=== PATIENT | female | born 1985 | race Hispanic/Latino ===

== ENCOUNTER 2016-08-11 06:29 | Inpatient (IN) ==
[2016-08-11] MEDS ORDERED: KEFZOL 1 GM/D5W 1 GM/50 ML IVPB IV PRN (06:59)
[2016-08-11] MEDS ORDERED: REGLAN PO ONE (06:59)
[2016-08-11] MEDS ORDERED: PEPCID PO ONE (06:59)
[2016-08-11] MEDS ORDERED: LR 500 ML IV ONE (06:59)
[2016-08-11] MEDS ORDERED: SODIUM CHLORIDE 0.9% INJ ONE ×2 (07:02→07:45)
[2016-08-11] MEDS ORDERED: PEPCID IV ONE ×2 (07:02→07:45)
[2016-08-11] MEDS ORDERED: BICITRA PO ONE ×2 (07:03→07:45)
[2016-08-11] MEDS ORDERED: DURAMORPH ONE (07:05)
[2016-08-11] MEDS ORDERED: EPHEDRINE ONE (07:05)
[2016-08-11] MEDS ORDERED: PITOCIN ONE (07:06)
[2016-08-11] MEDS ORDERED: TORADOL ONE (07:06)
[2016-08-11] MEDS ORDERED: ZOFRAN ONE (07:06)
[2016-08-11] MEDS ORDERED: PITOCIN 20 UNITS/LR 20 UNITS/1,000 ML IV.SOLN ONE (07:07)
[2016-08-11] MEDS ORDERED: CLINDAMYCIN 900 MG/NS 900 MG/50 ML IVPB IV ONE (07:10)
--- NOTE | 2016-08-11 07:17 | HISTORY AND PHYSICAL ---
HISTORY OF PRESENT ILLNESS: The patient is a 30-year-old female 3, para 2-0-0-2 who is admitted at this time for repeat and tubal ligation. She has had routine care, has an EDC of 08/17/2016. She has had 2 previous C-sections, is admitted at this time for a repeat and tubal ligation. She understands the tubal is permanent with a 1 out of 200 failure rate. PAST MEDICAL HISTORY: None. PAST SURGICAL HISTORY: x2. MEDICINES: vitamins. ALLERGIES: Penicillin. PHYSICAL EXAMINATION: GENERAL: Well-developed female. HEENT: Benign. NECK: Supple. LUNGS: Clear. CARDIOVASCULAR: Regular rate and rhythm. ABDOMEN: Soft, nontender. EXTREMITIES: Without clubbing, cyanosis, or edema. ASSESSMENT AND PLAN: This is a 30-year-old with term intrauterine , admitted at this time for repeat section, tubal ligation. The risks of surgery were explained. cc: Carlo Byers MD
[2016-08-11] MEDS: LR 1,000 ML IV SCH ×2 (08:05→21:08)
[2016-08-11 08:27] LABS: MANUAL DIFF NEEDED? NO
[2016-08-11 08:29] LABS: BASO% 0.2 % (0.0-0.8); EOS% 0.7 % (0.0-10.0); HEMATOCRIT 34.2 % (37.0-47.0); HEMOGLOBIN 11.5 g/dL (12.0-16.0); IMM GRAN# 0.17 X1000 (0.0-0.04); IMM GRAN% 1.2 % (0.0-0.5); LYMPH# 3.08 X1000 (1.2-3.4); LYMPH% 21.5 % (20.5-51.1); MCH 26.3 PG (27-31); MCHC 33.6 g/dL (33-37); MCV 78.1 FL (81-99); MONO# 1.02 X1000 (0.11-0.59); MONO% 7.1 % (1.7-9.3); MPV 9.3 FL (7.4-10.4); NEUT% 69.3 % (42.2-75.2); PLT 381 X1000 (130-400); RBC 4.38 XMIL (4.2-5.4)
[2016-08-11] MEDS ORDERED: AMBIEN PO PRN (08:31)
[2016-08-11] MEDS ORDERED: M-M-R II VACCINE SUBQ ONE (08:31)
[2016-08-11] MEDS ORDERED: BOOSTRIX VACCINE IM ONE (08:31)
[2016-08-11] MEDS ORDERED: MYLICON PO PRN (08:31)
[2016-08-11] MEDS ORDERED: DEMEROL IM PRN (08:31)
[2016-08-11] MEDS ORDERED: PITOCIN 20 UNITS/LR 20 UNITS/1,000 ML IV.SOLN IV ONE (08:31)
[2016-08-11] MEDS ORDERED: DEMEROL PO PRN ×2 (08:31)
[2016-08-11] MEDS ORDERED: HYDROXYZINE IM PRN (08:31)
[2016-08-11] MEDS ORDERED: PERCOCET-5 PO PRN (08:31)
[2016-08-11] MEDS ORDERED: HYDROXYZINE PO PRN (08:31)
[2016-08-11] MEDS ORDERED: PITOCIN IM PRN (08:31)
[2016-08-11] MEDS ORDERED: CYTOTEC PO PRN (08:31)
[2016-08-11] MEDS ORDERED: PHENERGAN IM PRN (08:31)
[2016-08-11 08:44] LABS: URINE SOURCE VOIDED
[2016-08-11 08:54] LABS: BILIRUBIN URINE NEGATIVE (NEGATIVE); BLOOD URINE NEGATIVE (NEGATIVE); CLARITY CLEAR (CLEAR); COLOR YELLOW; GLUCOSE URINE NEGATIVE (NEGATIVE); LEUKOCYTES URINE NEGATIVE (NEGATIVE); NITRITE URINE NEGATIVE (NEGATIVE); PH URINE 6.5; PROTEIN URINE NEGATIVE (NEGATIVE); SP GRAVITY URINE 1.015; UROBILINOGEN URINE NORMAL
[2016-08-11] MEDS ORDERED: BENADRYL IV PRN (10:38)
[2016-08-11] MEDS ORDERED: NARCAN INJ PRN (10:38)
[2016-08-11] MEDS ORDERED: ZOFRAN IV PRN ×2 (10:38)
[2016-08-11] MEDS ORDERED: ZOFRAN ODT PO PRN (10:38)
[2016-08-11] MEDS ORDERED: MORPHINE IV PRN (10:39)
--- NOTE | 2016-08-11 11:15 | OPERATIVE NOTE ---
PROCEDURE DATE : 08/11/2016 PREOPERATIVE DIAGNOSIS: Term intrauterine , previous section, desires repeat, desires tubal ligation. POSTOPERATIVE DIAGNOSES: 1. Term intrauterine , previous section, desires repeat, desires tubal ligation. 2. Severe pelvic adhesive disease. PROCEDURES PERFORMED: 1. Repeat low transverse section. 2. Bilateral tubal ligation. FINDINGS: The patient had a male born, Apgars of 9 and 10, weighed 8 pounds 4 ounces. The patient was noted to have diffuse adhesions of the uterus all the way up to the anterior abdominal wall. The uterus was all adhered to the lower segment and lower abdominal rectus muscles. DESCRIPTION OF PROCEDURE: The patient was taken to the operating room and underwent spinal anesthesia. She was given Cleocin IV and prepped and draped in sterile fashion. I made a Pfannenstiel skin incision and sharply dissected down to the fascia. The fascia was dissected off the rectus muscle. We tried to dissected in through the abdominal muscles, but they were densely adhered. We made a high incision, and finally we were able to get in anteriorly and dissect down using Nieto scissors to dissect the uterus off the rectus muscle until we could identify the lower segment. We made a high incision and low transverse, and clear fluid was noted upon entering the amniotic sac. The infant was delivered using fundal pressure. Cord blood was obtained. Placenta was removed. Uterus was externalized and cleaned with a clean lap. We first closed the major incision with a #1 chromic suture in interlocking fashion. We then used several [id number] and running sutures of #1 chromic to reapproximated the uterus and the serosa in order to stop bleeding. Each tube was then picked up and double ligated with 0 plain suture, cut and sent to pathology for identification. The uterus was put back in its anatomic position. Gelfoam was placed on the lower segment. The rectus muscles were closed with 0 chromic suture. Hemostasis was maintained with Bovie. The fascia was closed with #1 Vicryl, 3-0 Vicryl was used subcuticularly, and the skin was then closed with 4-0 Biosyn. Estimated blood loss is 500 mL. Mother and doing well. cc: Carlo Byers MD
[2016-08-11] MEDS: MYLICON PO SCH ×2 (13:14→20:35)
[2016-08-11] MEDS: PITOCIN 10 UNITS/LR 10 UNIT/1,000 ML IV.SOLN IV SCH (19:12)
[2016-08-11] MEDS: PERICOLACE PO SCH (20:34)
[2016-08-12] MEDS: LR 1,000 ML IV SCH (00:35)
[2016-08-12] MEDS: PITOCIN 10 UNITS/LR 10 UNIT/1,000 ML IV.SOLN IV SCH (03:12)
[2016-08-12] MEDS: PERCOCET-10 PO PRN ×3 (05:31→19:13)
[2016-08-12] MEDS: MOTRIN PO PRN ×2 (05:32→19:13)
[2016-08-12 06:12] LABS: HEMATOCRIT 27.7 % (37.0-47.0); HEMOGLOBIN 8.9 g/dL (12.0-16.0); MCH 25.4 PG (27-31); MCHC 32.1 g/dL (33-37); MCV 79.1 FL (81-99); MPV 9.3 FL (7.4-10.4); RBC 3.5 XMIL (4.2-5.4)
[2016-08-12] MEDS: MYLICON PO SCH ×5 (07:24→20:24)
[2016-08-12] MEDS ORDERED: LR 1,000 ML IV SCH (08:31)
--- NOTE | 2016-08-12 14:14 | PROGRESS NOTE ---
DATE: 08/12/2016 SUBJECTIVE: She is postop day 1 from a repeat delivery and tubal ligation. She voices no complaints. She has not yet ambulated or voided but states she is feeling well. OBJECTIVE: Vital signs are stable. She is afebrile. Lungs clear. Heart: Regular sinus rhythm. Abdomen is distended but soft. Incision is dry and intact. No cyanosis, clubbing, edema in her extremities. Her hemoglobin is 8.9. ASSESSMENT: Postop day 1. Routine postoperative and care. cc: MD Carlo Worthington MD
[2016-08-12] MEDS: PERICOLACE PO SCH (20:24)
[2016-08-13] MEDS: PERCOCET-10 PO PRN ×4 (00:55→20:05)
[2016-08-13] MEDS: MOTRIN PO PRN ×2 (08:59→20:04)
[2016-08-13] MEDS: MYLICON PO SCH ×4 (08:59→20:07)
--- NOTE | 2016-08-13 12:16 | Diag Imaging Result Doc PS360 ---
EXAM: KUB ABDOMEN HISTORY: ileus TECHNIQUE: Two views COMMENT: There is a large amount of stool and gas in the ascending colon. There is gas throughout the remainder of the colon with a relative paucity in the distal sigmoid and rectum. There are no previous studies. There are phleboliths in the pelvis. The stomach does not appear to be distended. There is no evidence organomegaly. IMPRESSION: Gaseous dilatation of the colon with constipation, with the exception of the distal sigmoid and rectum. Possibility of a distal colonic obstruction cannot be excluded. Electronically signed by Pelon Ospina 08/13/2016 12:14 PM
[2016-08-13 13:03] LABS: AGAP 12; ALBUMIN 3.1 g/dL (3.5-5.0); ALKALINE PHOSPHATASE 130 U/L (32-104); BUN 5 mg/dL (8-22); CALCIUM 8.5 mg/dL (8.8-10.2); CHLORIDE 102 mmol/L (98-107); COSMO 271; GOT 31 U/L (10-30); GPT 16 U/L (10-36); MAGNESIUM 1.9 mg/dL (1.5-2.7); POTASSIUM 4.2 mmol/L (3.5-5.1); SODIUM 137 mmol/L (136-145); TCO2 23 mmol/L (25-35); TOTAL PROTEIN 6.7 g/dL (6.3-8.3)
[2016-08-13] MEDS ORDERED: FLEET MINERAL OIL ENEMA PR ONE ×2 (14:01→15:30)
[2016-08-13] MEDS: PERICOLACE PO SCH (20:04)
[2016-08-13] MEDS: DULCOLAX PR PRN (20:04)
[2016-08-14] MEDS: DULCOLAX PR PRN (04:02)
[2016-08-14] MEDS ORDERED: MIRALAX PO ONE (06:47)
[2016-08-14 08:43] VITALS: BP 113/72
--- NOTE | 2016-08-14 08:48 | DISCHARGE SUMMARY ---
ADMISSION DATE: 08/11/2016 DISCHARGE DATE: 08/14/2016 ADMITTING DIAGNOSES: 1. Term . 2. Previous section requesting repeat section. 3. Undesired fertility. PRINCIPAL DIAGNOSES: 1. Term . 2. Previous section requesting repeat section. 3. Undesired fertility. PRINCIPAL PROCEDURE: Repeat and tubal sterilization. SUMMARY: Ms. Butt is a 30-year-old, 3, para 2-0-0-2, who is at term gestation. She previously had 2 sections and was admitted to the hospital and underwent a repeat C- section and, per her request, tubal sterilization by Dr. Byers on 08/11/2016. She delivered a male infant weighing 8 pounds 4 ounces with Apgars of 9 at one minute and 10 at five minutes. Extensive adhesions were noted. There were no intraoperative complications. Postoperatively, the patient did well. She remained afebrile. All vital signs were stable. She suffers from chronic constipation and did have some problems with constipation. With appropriate laxative use, she has had a bowel movement this morning. Her admission hemoglobin and hematocrit was 11.5/34.2 with discharge hemoglobin and hematocrit being 8.9/27.7. This morning cardiac and pulmonary examinations normal. Bowel and bladder functions normal. Incision was clean and dry. She is having scant vaginal bleeding. Ms. Butt will be discharged today, and we will see her back in the office in a week. Routine discharge instructions, activity limitations, and precautions were discussed. She will continue vitamins. She is given prescriptions for Percocet and Motrin for postoperative pain. I am going to start her on daily MiraLAX. cc: MD Carlo Macdonald MD
[2016-08-14] MEDS ORDERED: FERROUS SULFATE PO SCH (09:00)
[2016-08-14] MEDS ORDERED: PRECARE PO SCH (09:00)
[2016-08-14] MEDS: PERCOCET-10 PO PRN ×2 (09:14→14:13)
[2016-08-14] MEDS: MYLICON PO SCH ×2 (09:14→14:13)
[2016-08-14] MEDS: MOTRIN PO PRN (09:14)
== END 2016-08-14 16:00 | disposition home or self-care (01) ==
LOC: P.LD 06:29 → P.WC 12:27
PROVIDERS: ADMIT Obstetrics & Gynecology; ATTEND Obstetrics & Gynecology